=== PATIENT | female | born 1975 | race Caucasian/White ===

== ENCOUNTER 2022-10-09 07:55 | Outpatient (CLI) | payer OTHER, SELFPAY | END 2022-10-09 07:56 | disposition home or self-care (01) | LOC: NFLDREF 10-12 10:50 | PROVIDERS: PCP Physician Assistant Medical; Referring Provider Physician Assistant Medical; Visit Provider Physician Assistant Medical | DX: E03.9 Hypothyroidism, unspecified (principal); E78.1 Pure hyperglyceridemia; E78.5 Hyperlipidemia, unspecified; I10 Essential (primary) hypertension; R73.03 Prediabetes | CPT/HCPCS: 80053; 80061; 84443 ==

== ENCOUNTER 2022-11-26 07:57 | Outpatient (CLI) | payer OTHER, SELFPAY | END 2022-11-26 07:58 | disposition home or self-care (01) | LOC: OP CLINIC 07:58 | PROVIDERS: PCP Physician Assistant Medical; Visit Provider Surgery | DX: Z12.11 Encounter for screening for malignant neoplasm of colon (principal); Z83.71 Family history of colonic polyps | CPT/HCPCS: 45378; J2250; J3010 ==

== ENCOUNTER 2023-03-18 12:36 | Outpatient (CLI) | payer OTHER, SELFPAY ==
--- NOTE | 2023-03-18 13:00 | CRLHL7_ITS ---
For Patients: As a result of the Century Cures Act, medical imaging exams and procedure reports are released immediately into your electronic medical record. You may view this report before your referring provider. If you have questions, please contact your health care provider. BILATERAL SCREENING MAMMOGRAM WITH COMPUTER-AIDED DETECTION AND TOMOSYNTHESIS TECHNIQUE: CC and MLO views were obtained. These mammographic images have been obtained using full-field digital technique. These mammographic images were interpreted with the benefit of computer-aided detection. Breast Tomosynthesis was used in this interpretation. COMPARISON FILM: 01/24/22, 06/02/21, 05/20/20. FINDINGS: The breasts are heterogeneously dense, which may obscure small masses IMPRESSION: There is no radiographic evidence for malignancy. ASSESSMENT: BI-RADS Category 1: Negative RECOMMENDATION: Routine screening mammogram in 1 year. A lay language report of this examination will be provided to the patient. William Harrison M.D. Diagnostic Radiologist [email or web address] LULY/Dictated by: William Harrison MD @ 03/21/2023 11:57:00 AM (Electronically Signed)
== END 2023-03-18 12:37 | disposition home or self-care (01) ==
PROVIDERS: PCP Physician Assistant Medical; Visit Provider Physician Assistant
DX: Z12.31 Encounter for screening mammogram for malignant neoplasm of breast (principal); R92.2 Inconclusive mammogram
CPT/HCPCS: 77063; 77067

== ENCOUNTER 2023-10-28 08:44 | Outpatient (CLI) | payer OTHER, SELFPAY | END 2023-10-28 08:45 | disposition home or self-care (01) | PROVIDERS: PCP Physician Assistant Medical; Visit Provider Physician Assistant Medical | DX: Z00.00 Encounter for general adult medical examination without abnormal findings (principal); E11.9 Type 2 diabetes mellitus without complications; E78.1 Pure hyperglyceridemia; E03.9 Hypothyroidism, unspecified; I10 Essential (primary) hypertension; E78.5 Hyperlipidemia, unspecified | CPT/HCPCS: 80053; 80061; 82043; 82570; 84443 ==

== ENCOUNTER 2024-04-27 12:02 | Outpatient (CLI) | payer OTHER, SELFPAY | END 2024-04-27 12:03 | disposition home or self-care (01) | PROVIDERS: PCP Physician Assistant Medical; Visit Provider Physician Assistant Medical | DX: M54.2 Cervicalgia (principal) | CPT/HCPCS: 86618 ==

== ENCOUNTER 2024-10-05 09:51 | Outpatient (CLI) | payer OTHER, SELFPAY | END 2024-10-05 09:52 | disposition home or self-care (01) | LOC: NFLDREF 10-06 01:17 | PROVIDERS: PCP Physician Assistant Medical; Referring Provider Physician Assistant Medical; Visit Provider Physician Assistant Medical | DX: I10 Essential (primary) hypertension (principal); E78.2 Mixed hyperlipidemia; E78.1 Pure hyperglyceridemia; E03.9 Hypothyroidism, unspecified; N39.0 Urinary tract infection, site not specified; B96.20 Unspecified Escherichia coli [E. coli] as the cause of diseases classified elsewhere | CPT/HCPCS: 80053; 80061; 82043; 82570; 84443; 87086 ==

== ENCOUNTER 2025-06-29 09:48 | Outpatient (CLI) | payer OTHER, SELFPAY ==
--- NOTE | 2025-06-29 10:15 | MR_ITS ---
[address] [address] Phone:?[phone] Fax:?[phone] Referring Physician Information: Isaías Victor M.D. [address] [facility] [address] Phone:?[phone] Fax:?[phone] Patient:Carline Hawkins D.O.B:?1975 Sex:?Female Phone:?[phone] [facility] MRN:?[id number] Exam Date:?06/29/2025 EXAM: MRI of the RIGHT KNEE, without contrast CLINICAL INFORMATION: Female, 50 years old, with right knee pain. INDICATION: Evaluate for medial meniscal tear. PRIOR SURGERY: None reported. PLAIN FILMS: Knee radiographs dated 06/17/2025. COMPARISONS: No prior MRIs available. TECHNICAL INFORMATION: Using a 1.5T MR scanner and a localizing surface coil: sagittals: PD, PDFS coronals: PD, T2FS axials: PD, PDFS SEDATION: None CONTRAST: None FINDINGS: Knee joint: Effusion: Small right knee effusion. Popliteal cyst: Tiny, unruptured popliteal (Centeno's) cyst. Loose bodies: None. Subcutaneous and extra-articular soft tissues: Unremarkable. Ligaments: ACL: Intact ACL anteromedial and posterolateral bundles, without sprain or tear. PCL: Intact PCL, without acute or chronic injury. MCL: Intact MCL superficial and deep layers, without injury. LCL: Intact LCL, without injury. Posterolateral corner: No posterolateral corner soft tissue injury. Popliteus, biceps femoris, iliotibial band, popliteofibular ligament and lateral gastrocnemius are intact. Posteromedial corner: No posteromedial corner soft tissue injury. Semimembranosus, pes anserine tendons and posterior oblique ligament are without injury, tendinopathy or bursitis. Extensor mechanism: Patellar tendon: Intact, without tendinopathy. Quadriceps tendon: Intact, without tendinopathy. Retinacula: Medial and lateral retinacula are intact. Fat pads: Unremarkable infrapatellar Hoffa's, quadriceps and prefemoral fat pads. Medial compartment: Medial meniscus: Partial thickness radial tearing at the posterior horn/root junction over a length of 1.0 cm and involving the inferior one half of the meniscus (coronal STIR series 8 images 20-23 and sagittal PDFS series 6 images 19-21). Meniscal extrusion measures 3 mm. Abnormal signal and irregularity is present throughout the posterior meniscocapsular junction (sagittal PDFS series 6 images 19-24). Medial femoral condyle: No chondromalacia or osteochondral abnormality. Medial tibial plateau: No chondromalacia or osteochondral abnormality. Lateral compartment: Lateral meniscus: No articular surface, meniscosynovial junction or root tear. No displacement, extrusion or parameniscal cyst. Lateral femoral condyle: No chondromalacia or osteochondral abnormality. Lateral tibial plateau: No chondromalacia or osteochondral abnormality. 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 Trochlea: Broad-based grade II/III chondromalacia of the medial facet and central sulcus, with minimal marginal osteophytosis. Proximal tibiofibular joint: Unremarkable, without evidence of ligament sprain injury, joint effusion or adjacent marrow edema. Bones: No stress/occult fractures or other marrow edema/pathology. IMPRESSION: 1. Partial thickness radial undersurface tearing of the posterior horn/root junction of the medial meniscus measuring 1.0 cm and involving the inferior one half of the meniscus. This associated with 3 mm of meniscal extrusion and a superimposed posterior meniscocapsular junction sprain. 2. Small knee joint effusion with a tiny, unruptured popliteal (Centeno's) cyst. 3. Mild osteoarthritis of the patellofemoral compartment. 4. No cruciate or collateral ligament sprain/tear. 5. No lateral meniscal tear. 6. No osteochondral abnormality of the medial or lateral compartment. BC Electronically signed on 06/29/2025 12:48:00 PM by Cortez Brown M.D.
== END 2025-06-29 09:49 | disposition home or self-care (01) ==
LOC: MRI 09:49
PROVIDERS: PCP Physician Assistant Medical; Visit Provider Orthopaedic Surgery Sports Medicine
DX: M25.561 Pain in right knee (principal); S83.241A Other tear of medial meniscus, current injury, right knee, initial encounter; M17.11 Unilateral primary osteoarthritis, right knee; M25.461 Effusion, right knee; M71.21 Synovial cyst of popliteal space [Baker], right knee
CPT/HCPCS: 73721